=== PATIENT | female | born 1945 | race Caucasian/White ===

== ENCOUNTER → 2019-04-23 09:39 | Outpatient (CLI) | payer MEDICARE, OTHER ==
[2015-08-16 13:29] VITALS: BMI 33.0
[~2019-04-23 09:39] MED LIST: ESTRACE 0.5 MG0.5 MG PO; GLUCOSAMINE & C1 CAP PO; TOPROL XL25 MG PO; VITAMIN D31000 UNIT PO; VITAMIN E1000 UNI1 PO
--- NOTE | 2019-04-25 13:04 | EC ---
PATIENT:VANESSA CHAIDEZ DATE OF SERVICE: 04/23/19 SEX: F MEDICAL RECORD: [id number] DATE OF : 45 LOCATION:[facility] AGE OF PATIENT: 73 ADMISSION DATE: 04/23/19 REFERRING PHYSICIAN: INTERPRETING PHYSICIAN: COOPER DENISE MD ECHOCARDIOGRAM REPORT ECHO CHARGES 4 ECHO COMPLETE Date: 04/23/19 CLINICAL DIAGNOSIS: HTN/PALPITATIONS ECHOCARDIOGRAPHIC MEASUREMENTS (adult normal given) AC root (d.<3.7cm) 3.3 cm LV Septum d (<1.2 cm> 1.2 cm Valve Excursion 1.6 cm LV Septum (systole) 1.7 cm Left Atria (s.<4.0cm> 4.5 cm LVPW d(<1.2cm) 1.2 cm RV (d.<2.3cm) 2.3 cm LVPW (sytole) 1.9 cm LV diastole(<5.6CM) 5.9 cm MV E-F(>70mm/sec) cm LV systole 3.1 cm LVOT Diameter 1.7 cm MV exc.(>10mm) cm Est.ejection fraction (50-75%) % DOPPLER: LVIT cm/sec A 96.0 cm/sec E 78.0 cm/sec LA cm/sec RVSP 31.3 mmHg LVOT 88.0 cm/sec AOP1/2T m/s Asc. Ao 117 cm/sec RVOT 58.0 cm/sec RA cm/sec PA 95.0 cm/sec AV Gradient Peak 5.5 mmHg AV Mean 3.2 mmHg AV Area 1.8 cm MV Gradient Peak 4.5 mmHg MV Mean 1.8 mmHg MV Area cm COMMENTS: OP - HC Road Patcher: 1 GEORGE CHARLENE Skip Hoist Engineer: 3 Dr. Garvey TAPE# PACS Pericardial Effusion N DATE OF SERVICE: Adequate 2D, color flow, spectral Doppler, and M-mode. Borderline LVH. LV internal dimensions are normal. Wall motion is normal. EF is greater than or equal to 55%. Aortic valve is tricuspid. No evidence of stenosis by Doppler interrogation. Left atrium is mildly dilated at 4.5 cm. Mitral valve shows no prolapse. Mild MR. Right-sided chambers are grossly normal. Trace TR. 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
== END | disposition home or self-care (01) ==
LOC: D.HCCECHO 09:30
PROVIDERS: ATTEND Internal Medicine Interventional Cardiology
DX: I10 Essential (primary) hypertension (principal)